=== PATIENT | female | born 1955 | race Caucasian/White ===

== ENCOUNTER 2021-08-24 21:56 | Emergency (ER) | payer OTHER ==
[~2021-08-24] VITALS: Ht 149.9 cm; Wt 44.9 kg
[2021-08-24 22:00] VITALS: BP_SYST 147
[2021-08-24] MEDS ORDERED: NS 500 ML IV ONE (22:30)
[2021-08-24] MEDS ORDERED: HYDROmorphone 1 MG/ML INJ. CARTRIDGE IVP ONE (22:30)
[2021-08-24] MEDS ORDERED: PIPERACILLIN/TAZO 3.375 GM in NS 50 ML IV ONE (22:30)
[2021-08-24] MEDS ORDERED: NACL 0.9% 1,000 ML IV ONE (22:30)
[2021-08-24] MEDS ORDERED: AZITHROMYCIN 250 MG TABLET PO ONE (22:30)
[2021-08-24] MEDS ORDERED: ACETAMINOPHEN 325 MG TABLET PO ONE (22:45)
[2021-08-24] MEDS ORDERED: PIPERACILLIN/TAZOBACTAM 3.375 GM/VIAL (ZOSYN) IV ONE (22:45)
[2021-08-24] MEDS ORDERED: KETAMINE 30 MG/3 ML SYRINGE IVP ONE (23:00)
[2021-08-24] MEDS ORDERED: KETAMINE 30 MG/3 ML SYRINGE ONE (23:22)
[2021-08-24] MEDS ORDERED: KETAMINE 30 MG/3 ML SYRINGE 30 MG in NS 100 ML IV ONE (23:30)
[2021-08-24] MEDS ORDERED: MORPHINE SULFATE IN 0.9 % NACL 100 ML IV PRN (23:45)
[2021-08-24] MEDS ORDERED: MORPHINE SULFATE 10 MG/ML VIAL ONE (23:45)
== END 2021-08-25 00:25 | disposition left against medical advice (07) ==
LOC: SED 21:56
DX: M54.9 Dorsalgia, unspecified (principal); R50.9 Fever, unspecified; M79.661 Pain in right lower leg; M79.662 Pain in left lower leg
CPT/HCPCS: 96361; 96374; 96375; 99284; J1170; J2270; J2543; J7030; Q0144; 99283